=== PATIENT | female | born 1965 | race Caucasian/White ===

== ENCOUNTER 2024-01-04 09:55 | Emergency (ER) | payer OTHER, SELFPAY ==
[2024-01-04 10:02] VITALS: BP 117/62
--- NOTE | 2024-01-04 10:14 | ED.GENMED ---
History of Present Illness
General
Chief Complaint: Musculo-Skeletal Complaint
Source: patient
Time Seen by Provider: 01/04/24 10:06
History of Present Illness
History of Present Illness:
58-year-old female presenting to the emergency department for evaluation of left lower extremity pain following an accidental fall down 1 stair last night when she excellently missed the step and falling onto her left lower leg. Patient was able to
sleep without any issues but awoke this morning with more proximal fibular pain and difficulty ambulating prompting her to come to the ER for further evaluation. No other injuries were sustained. Patient notes a couple of abrasions to the left
lower leg but this was from a previous injury about a week or so ago. Denies any other previous history of injury or surgery. Denies head injury. No other concerns.
Past History
Past History
ED Past Medical History: None
ED Past Surgical History: Gynecological
Social History
Tobacco: Smoker
Alcohol: Occasional
Drug: None
Personal:
Living: with family
Review of Systems
Review of Systems
All Other Systems: ROS reviewed and negative except as documented in HPI and ROS
Phy Exam
Physical Exam
Physical Exam:
GENERAL: Alert , in no apparent distress
EYE: conjunctiva clear
Head: Normocephalic atraumatic
NECK: Supple,
ENT: mmm.
LUNGS: no acute respiratory distress
NEUROLOGICAL: Alert and oriented
SKIN: Warm and dry, skin intact.
MUSCULOSKELETAL: Left lower extremity: No obvious deformity, erythema, edema, ecchymosis. There are well-healed scabs to the left lateral ankle without any surrounding erythema or secondary signs of infection. Patient allows for full range of
motion of the foot, ankle, knee and hip. She does note some increased pain with knee flexion and extension. There is proximal fibular tenderness to palpation. No tenderness along the medial or lateral malleolus. Calcaneal tendon intact. Easily
palpable pedal and tibial pulse. Sensation grossly intact to light touch.
PSYCH: Normal and appropriate interaction.
Scores
Heart Failure Risk
Heart Failure Risk Score: Not Applicable
Heart Score for Chest Pain Patients
STEMI patient?: Not applicable
Withdrawal Assessment of Alcohol
Withdrawal Assessment Completed?: Not applicable
Course
Orders/Labs/Results
Orders:
Orders
01/04/24 10:14
CR Leg Tibia/fibula Left 2 Vw Urgent
Comment:
Reason For Exam: proximal fibula pain, fall
01/04/24 10:43
Crutches-Treatment ONCE
Knee Immobilizer Left-Treatmen ONCE
CR Knee - Left 4 Or More View* Urgent
Comment:
Reason For Exam: suspected prox fib fracture
Vital Signs
Initial and Last Documented VS:
Initial Vital Signs
Temp Pulse Resp BP Pulse Ox
98.8 F 58 16 117/62 97
01/04/24 10:02 01/04/24 10:02 01/04/24 10:02 01/04/24 10:02 01/04/24 10:02
Last Documented Vital Signs
Temp Pulse Resp BP Pulse Ox
98.8 F 58 16 117/62 97
01/04/24 10:02 01/04/24 10:02 01/04/24 10:02 01/04/24 10:02 01/04/24 10:02
MDM/Problems Addressed
Differential Diagnosis Includes:
Sprain, contusion, fracture
MDM/Problems Addressed:
58-year-old female presenting to the emergency department for evaluation of left lower leg injury following an accidental fall last night. Difficulty ambulating today. Pain on palpation of the proximal fibular region. Extremity is otherwise
neurovascularly intact. X-ray ordered. Patient took Advil prior to arrival. Disposition pending x-ray results.
*Radiology
Radiology exam reviewed: preliminary read by ED provider (Nondisplaced proximal left fibula fracture)
*Pulse Oximetry
Patient hypoxic: no
*Critical Care Note
Total Time (30-74mins, 75-104mins- exclusive of procedures): Not Applicable
Patient Management
Escalation/DeEscalation of care consider admission/obs:
Patient's x-ray confirms suspicion for proximal left fibula fracture. She was placed in a knee immobilizer. Given crutches for stability. Information for orthopedics provided. Stable for discharge home and aware of return precautions.
ED Attending Note
-
Portions of this chart may have been created with voice recognition software.� Occasional wrong word or��sound alike� substitutions may have occurred due to the inherent limitations of voice recognition software.
Discharge Plan
Departure
Patient Disposition: Home (Routine Discharge)
Date of Disposition: 01/04/24
Time of Disposition: 11:02
Patient with high blood pressure during this ER visit?: No
Discharge Problem:
Closed fracture of fibula, proximal, left, Accidental fall
Instructions: Lower leg fracture
Prescriptions:
No Action
multivitamin [Daily Multiple] 1 EACH tablet
1 ea PO DAILY
aspirin 81 MG tablet,chewable
81 mg PO DAILY
desvenlafaxine succinate [Pristiq] 50 MG tablet extended release 24 hr
50 mg PO DAILY
ondansetron 4 MG tablet,disintegrating
4 mg PO TIDPRN PRN (Reason: nausea) Qty: 7 0RF
Referrals:
Mitesh Feliciano MD [Active] -
Yadiel August MD [Family Provider] -
Interventions
Interventions:
*Risk Screen - Suicide Last Done: 01/04/24 10:02
*General Assessment Last Done: 01/04/24 10:02
*Neglect/Abuse Screening Last Done: 01/04/24 10:02
ED-Musculoskeletal Assessment Last Done: 01/04/24 10:10
ED- Neurological Assessment Last Done: 01/04/24 10:10
ED-Skin Assessment Last Done: 01/04/24 10:10
Discharge Date and Time
Print Language: MACANESE
== END 2024-01-04 11:12 | disposition home or self-care (01) ==
LOC: EMR 09:55
PROVIDERS: EMERGENCY PHYSICIAN Emergency Medicine; FAMILY PHYSICIAN Family Medicine
DX: S82.832A Other fracture of upper and lower end of left fibula, initial encounter for closed fracture (principal); W10.9XXA Fall (on) (from) unspecified stairs and steps, initial encounter; F17.200 Nicotine dependence, unspecified, uncomplicated
CPT/HCPCS: 99283; 73564; 73590

== ENCOUNTER 2024-03-08 01:17 | Inpatient (IN) | payer OTHER, SELFPAY ==
[2024-03-07 20:30] VITALS: BP 108/72
[2024-03-07] MEDS: ZOFRAN 4 MG IV (20:53)
[2024-03-07 20:57] LABS: % Basophils 0.2 % (0-2); % Immature Granulocytes 0.5 % (0-0.5); % Lymphocytes 5.7 % (20.5-51.1); % Monocytes 5.9 % (1.7-9.3); % Neutrophils 87.7 % (42.2-75.2); Absolute Immature Granulocytes 0.1 10^3/uL (0-0.05); Absolute Lymphocytes 1.3 10^3/uL (1.2-3.4); Absolute Monocytes 1.3 10^3/uL (0.1-0.6); Absolute Neutrophils 19.9 10^3/uL (1.4-6.5); Hematocrit 33.6 % (37.0-47.0); Hemoglobin 12.2 g/dL (12.0-16.0); Mean Corp Hgb Conc. 36.3 g/dL (33.0-37.0); Mean Corpuscular Hgb 31.9 pg (27.0-31.0); Mean Corpuscular Volume 87.7 fL (81.0-99.0); Mean Platelet Volume 10.4 fL (7.4-10.4); Nucleated Red Blood Cells % 0 %; Platelet Count 449 10^3/uL (130-400); Red Blood Cell Count 3.83 10^6/uL (4.20-5.40); Red Cell Dist. Width 13.2 % (11.5-14.5); White Blood Cell Count 22.7 10^3/uL (4.8-10.8)
[2024-03-07 21:20] VITALS: BMI 29.5
--- NOTE | 2024-03-07 21:21 | ED.GENMED ---
History of Present Illness
General
Chief Complaint: Abdominal Symptoms
Source: patient
Exam Limitations: none
Time Seen by Provider: 03/07/24 20:59
History of Present Illness
History of Present Illness:
This is a 58 year old female that comes in with c/o vomiting and diarrhea. States that this has happened before when she eats certain food. States that last night she eat Peanuts. then at 4:30am she awoke with vomiting and diarrhea. States that she
has abd pain, States that she has vomiting and diarrhea and becomes sweaty and then has chills. States that she also feel lightheaded. Denies any feer, chest pain, SOB, headache, urinary burning.
Past History
Past History
ED Past Medical History: HTN and Other (Inguinal hernia)
ED Past Surgical History: Gynecological (Uterine ablation) and Other (Skin graft, )
Social History
Tobacco: Smoker
Alcohol: Occasional
Drug: None
Personal:
Living: with family
Review of Systems
Review of Systems
All Other Systems: ROS reviewed and negative except as documented in HPI and ROS
Constitutional: Reports chills and other (Sweats); Denies fever
EENT: Reports no symptoms
Respiratory: Reports no symptoms; Denies cough or trouble breathing
Cardiac: Reports no symptoms; Denies chest pain
ABD/GI: Reports abdominal pain, nausea, vomiting and diarrhea
: Reports no symptoms; Denies dysuria, frequency or urgency
Musculoskeletal: Reports no symptoms
Skin: Reports no symptoms
Neurological: Reports other (Lightheaded); Denies headache
Psychiatric: Reports no symptoms
Phy Exam
General Physical Exam
General Presentation: no apparent distress
General age: appears stated age
General Skin: warm, dry and pale
General Habitus: normal
General Mental: alert
General Hydration: dry mucous membranes
ENT Exam
ENT Exam: TM's normal, pharynx normal and neck supple
Eye Exam
Eye Exam: EOMI
Cardiovascular Exam
Cardiovascular Exam: regular rate/rhythm, no edema and normal peripheral pulses
Pulmonary Exam
Pulmonary Exam: lungs clear, no respiratory distress, no rales, chest non tender, no crackles, no rhonchi, no wheezing and no cough
Gastrointestinal Exam
Gastrointestinal Exam: normal bowel sounds, non tender, soft, no organomegaly, no pulsatile mass and non distended
Musculoskeletal Exam
Musculoskeletal Exam: full ROM and no edema
Skin Exam
Skin Exam: normal color, warm/dry, no rash and no petechia
Psychiatric Exam
Psychiatric Exam: normal mood/affect
Course
Orders/Labs/Results
Orders:
Orders
03/07/24 20:50
Complete Blood Count/With Diff Urgent
Comprehensive Metabolic Panel Urgent
Lipase Urgent
03/07/24 20:52
Ondansetron Injectable [Zofran] 4 mg .ROUTE .STK-MED ONE
03/07/24 20:53
Ondansetron Injectable [Zofran] 4 mg IV NOW STA
03/07/24 20:57
EKG [Electrocardiogram (*1)] Urgent
Reason for Study: Bradycardia / Tachycardia
EKG- Treatment ONCE
03/07/24 21:19
0.9% Sodium Chloride 1000 ml [Nss] 1,000 ml IV BOLUS
CR Chest - 2 Views Urgent
Comment:
Reason For Exam: abd pain
03/07/24 21:20
CT Abd/pelvis W Iv Cont Urgent
Comment:
Reason For Exam: vomiting, diarrhea, High wBC count
Diphenhydramine [Benadryl] 25 mg IV NOW STA
Prochlorperazine [Compazine] 5 mg IV NOW STA
03/07/24 21:30
COVID-19 Antigen Urgent
Source: Nasal Swab
03/07/24 23:04
Electrocardiogram (*1) Urgent
Reason for Study: QTc Monitoring
EKG- Treatment ONCE
03/07/24 23:31
Prochlorperazine [Compazine] 5 mg IV NOW STA
03/07/24 23:42
Urinalysis Reflex To Culture Urgent
Date Specimen was Collected: 03/07/24
Time Specimen was Collected: 23:37
Urine Microscopic Reflex Cult Urgent
Abnormal Lab Results
03/07/24 03/07/24
20:50 23:42
WBC 22.7 H 10^3/uL
(4.8-10.8)
RBC 3.83 L 10^6/uL
(4.20-5.40)
Hct 33.6 L %
(37.0-47.0)
MCH 31.9 H pg
(27.0-31.0)
Plt Count 449 H 10^3/uL
(130-400)
Abs Immat Gran (auto) 0.1 H 10^3/uL
(0-0.05)
Absolute Neuts (auto) 19.9 H 10^3/uL
(1.4-6.5)
Absolute Monos (auto) 1.3 H 10^3/uL
(0.1-0.6)
Neutrophils % 87.7 H %
(42.2-75.2)
Lymphocytes % 5.7 L %
(20.5-51.1)
Carbon Dioxide 13 L* mmol/L
(22-30)
BUN 18 H mg/dl
(7-17)
Glucose 186 H mg/dl
(70-99)
Calcium 10.6 H mg/dl
(8.4-10.2)
Urine Ketones 2+ A
(Negative)
Ur Occult Blood Reflex 1+ A
(Negative)
Urine Glucose 2+ A
(Negative)
03/07/24 20:50
03/07/24 20:50
Leukocytosis, Plt slightly elevated. carbon dioxide low. Very slight Dehydration. hyperglycemia. Calcium slightly low, Urine negative for infection.
Vital Signs
Initial and Last Documented VS:
Initial Vital Signs
Temp Pulse Resp BP Pulse Ox
98.2 F 61 26 108/72 100
03/07/24 20:30 03/07/24 20:30 03/07/24 20:30 03/07/24 20:30 03/07/24 20:30
Last Documented Vital Signs
Temp Pulse Resp BP Pulse Ox
100.1 F 60 25 157/59 100
03/07/24 23:42 03/07/24 23:00 03/07/24 23:00 03/07/24 22:00 03/07/24 20:30
Tree Inspector consulted with Physician
Tree Inspector consulted with physician?: Yes
Name of Physician Consulted: Dr. Alonzo
MDM/Problems Addressed
Differential Diagnosis Includes:
Diverticulitis, Viral syndrome
MDM/Problems Addressed:
This is a 58 year old female that comes in with c/o abd pain, vomiting and diarrhea. States that this started at 4:30am last night.
Will check labs. IV fluids and CT scan. Medicate for nausea and vomiting.
Back into see patient. Patient states that she is feeling much better and she was able to sleep. Patient states that she can now give a urine. Explained to patient that she doesn't want to use Zofran to help with her nausea and vomiting as she has a
long QT. Will repeat the ECG and give patient a prescription for Reglan for the nausea and vomiting.
Back into see patient. Patient is again nauseated and vomiting. Will admit patient. Repeat ECG: rate 61, NSR, Normal axis. Normal QRS, QT normal at 450. Nonspecific ST in V3, V4, V5, V6, Checked by Dr. Rodrigez
Chronic conditions affecting care:
NA
Acute Exacerbation and/or Progression of Chronic Illness:
NA
*Radiology
Radiology exam reviewed: preliminary read by ED provider (Chest-Negative for active disease. ) and radiology read reviewed (CT-No significant acute abnormality identified in the abdomen or pelvis, as described above. )
*Pulse Oximetry
Patient hypoxic: no
*EKG
Interpreted by ED Provider?: Yes
Heart Rate: 68
Rate: normal
Rhythm: sinus and PVC's
Corona: normal axis
Interval: normal interval and long QT
QRS Pattern: normal QRS
Ischemia: non-specific ST changes
*Under Sheriff Interpretation
Rate: bradycardiac
Heart Rate: 50
Rhythm: sinus (Bradycardia with PVC's. (states that she is always that low))
*Critical Care Note
Total Time (30-74mins, 75-104mins- exclusive of procedures): Not Applicable
ED Attending Note
-
Portions of this chart may have been created with voice recognition software.� Occasional wrong word or��sound alike� substitutions may have occurred due to the inherent limitations of voice recognition software.
Discharge Plan
Departure
Prescriptions:
No Action
losartan 100 mg Tablet
100 mg PO DAILY
apple cider vinegar 500 mg Tablet
500 mg PO DAILY
varenicline [Chantix Starting Month Box] 0.5 mg (11)- 1 mg (42) Tablets,Dose Pack
0 ea PO PER PKG DIR
Patient Comments:
03/07/24: Patient states she started about a week ago
desvenlafaxine succinate [Pristiq] 100 mg Tablet Extended Release 24 Hr
100 mg PO DAILY
magnesium oxide 400 mg magnesium Tablet
400 mg PO DAILY
Referrals:
Yadiel August MD [Family Provider] -
Interventions
Interventions:
*Risk Screen - Suicide Last Done: 03/07/24 20:29
*Neglect/Abuse Screening Last Done: 03/07/24 21:15
ED- Fall Risk Assessment Last Done: 03/07/24 21:12
*ED COVID-19 Vaccine History Last Done: 03/07/24 21:14
[place]-Mqznqg-Qzzqrmwoyh Assessment Last Done: 03/07/24 21:12
Discharge Date and Time
Print Language: MARTINIQUAIS
[2024-03-07] MEDS: COMPAZINE 5 MG IV ×2 (21:25→23:39)
[2024-03-07] MEDS: BENADRYL 25 MG IV (21:25)
[2024-03-07] MEDS: NSS 1000 IV (21:26)
[2024-03-07 21:36] LABS: AST (SGOT) 28 U/L (14-36); Albumin 4.8 g/dl (3.5-5.0); Alkaline Phosphatase 104 U/L (38-126); Blood Urea Nitrogen 18 mg/dl (7-17); Calcium 10.6 mg/dl (8.4-10.2); Carbon Dioxide 13 mmol/L (22-30); Chloride 106 mmol/L (98-107); Estimated Creatinine Clearance 84 ml/min; Glucose 186 mg/dl (70-99); Lipase 60 U/L (23-300); Potassium 3.7 mmol/L (3.5-5.1); Sodium 138 mmol/L (135-145); Total Bilirubin 0.6 mg/dl (0.2-1.3); Total Protein 7.1 g/dl (6.3-8.2); eGFR > 60.00
[2024-03-07 21:46] LABS: ALT (SGPT) < 30 U/L (0-35)
[2024-03-07 21:55] LABS: COVID-19 Antigen Negative (Negative)
[2024-03-07 22:00] VITALS: BP 157/59
[2024-03-08] VITALS (7 sets, daily range): BP systolic 103–182; BP diastolic 55–68; BMI 29.1
[2024-03-08 00:03] LABS: Urine Albumin Trace (Neg - Trace); Urine Bilirubin Negative (Negative); Urine Character Clear (Clear); Urine Color Yellow; Urine Glucose 2+ (Negative); Urine Ketone 2+ (Negative); Urine Leukocyte Negative (Negative); Urine Nitrite Negative (Negative); Urine Occult Blood 1+ (Negative); Urine Urobilinogen Negative (Neg - 1+)
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
[2024-03-08 00:43] LABS: Urine Amorphous Seen; Urine Bacteria Few (Negative); Urine White Cell 0-2 /HPF (0-5)
[2024-03-08 01:08] LABS: Lactic Acid 1.6 mmol/L (0.7-2.0)
[2024-03-08 01:16] LABS: B-Hydroxybutyrate 0.19 mmol/L (0.02-0.27)
[2024-03-08] MEDS: TIGAN 200 MG IM ×2 (02:37→08:53)
[2024-03-08] MEDS: SODIUM BICARBONATE 1170 MEQ IV ×6 (03:08→22:57)
[2024-03-08 06:25] LABS: Hematocrit 32.8 % (37.0-47.0); Hemoglobin 11.6 g/dL (12.0-16.0); Mean Corp Hgb Conc. 35.4 g/dL (33.0-37.0); Mean Corpuscular Hgb 32.9 pg (27.0-31.0); Mean Corpuscular Volume 92.9 fL (81.0-99.0); Platelet Count 377 10^3/uL (130-400); Red Blood Cell Count 3.53 10^6/uL (4.20-5.40); Red Cell Dist. Width 13.6 % (11.5-14.5); White Blood Cell Count 20.1 10^3/uL (4.8-10.8)
[2024-03-08 06:47] LABS: Blood Urea Nitrogen 14 mg/dl (7-17); Carbon Dioxide 23 mmol/L (22-30); Chloride 105 mmol/L (98-107); Estimated Creatinine Clearance 83 ml/min; Glucose 120 mg/dl (70-99); Potassium 4.3 mmol/L (3.5-5.1); Sodium 141 mmol/L (135-145); eGFR > 60.00
[2024-03-08 07:17] LABS: TSH Reflex To Free T4 0.46 uIU/ml (0.47-4.68)
[2024-03-08 07:33] LABS: Erythrocyte Sed Rate 12 mm/hour (0-20)
[2024-03-08 07:46] LABS: Free T4 1.08 ng/dl (0.78-2.19)
[2024-03-08] MEDS: PRISTIQ 100 MG PO (08:46)
[2024-03-08] MEDS: COZAAR 100 MG PO (08:46)
[2024-03-08 09:19] LABS: Glycohemoglobin (HgbA1c) 5.3 % (4.0-5.6)
--- NOTE | 2024-03-08 10:21 | W.PN.HOSP.TC ---
Today's Communication/Plan
-
Continue with IV fluids
Advance diet as tolerated
Monitor on telemetry
Replete lites as needed
Assessment / Plan
Assessment / Plan
A/P: Patient is a 58y F with PMH significant for hypertension and heart murmur who presents to ED complaining of abdominal pain with N/V/D since this AM.
Intractable N/V/D
Abdominal Pain
Anion Gap Metabolic Acidosis
- Unclear etiology of symptoms ? viral gastroenteritis
- ? due to GI losses versus underlying reason for N/V/D.
- Aggressive IVF replacement and follow for improvement in labs / lytes.
- Monitor for any worsening abd pain, recurrent N/V, etc.
- Check stool studies if possible. Norovirus added
- Follow for clinical improvement. Improvement in WBC.
- CT abdomen pelvis with no significant acute abnormality in the abdomen or pelvis.
Leukocytosis
- Suspect stress reaction. Note accompanying thrombocytosis as well.
- Monitor for fever, positive culture data, etc.
- Observe off of systemic abx for now.
Long QT
Bigeminy
- Monitor on telemetry overnight.
- Repeat EKG this morning with ventricular rate of 53 with bradycardia. QT/QTc of 476/446. No significant ST or T wave changes noted. Significant improvement in QTc.
Murmur
- ? aortic stenosis. Patient states that she had regular echocardiograms for surveillance.
- Followed by [facility].
- Send for most recent records.
Benign Hypertension
- Stable. Continue losartan with holding parameters.
Anxiety / Depression
- Stable. Continue Pristiq.
Tobacco Use Disorder
- Given that Chantix is a new medications (about one week) - will hold further doses for now.
DVT Prophylaxis: SCDs
Code Status: Full
Anticipated Discharge: > 48 hours
Subjective/Interval History
-
Date of Service: March 08, 2024
States of severe nausea and vomiting
multiple loose stools yesterday
Objective Data
-
Labs:
Laboratory Results
03/08/24
06:03
WBC 20.1 H
Hgb 11.6 L
Hct 32.8 L
Plt Count 377
Sodium 141
Potassium 4.3
Chloride 105
Carbon Dioxide 23
BUN 14
Creatinine 0.7
Glucose 120 H
Calcium 10.0
Vital Signs:
Vital Signs
Temp Pulse Resp BP Pulse Ox
98.1 F 55 16 182/68 100
03/08/24 07:57 03/08/24 07:57 03/08/24 07:57 03/08/24 07:57 03/08/24 07:57
I&O
03/07/24 03/08/24 03/09/24
06:59 06:59 06:59
Output Total 200 / 200
Balance -200 / -200
Physical Exam
-
General: Well Developed and No Apparent Distress
HEENT: Normocephalic, Atraumatic and Moist Mucous Membranes
Respiratory: Clear to Auscultation
Cardiac: Regular Rhythm and S1/S2; Negative Murmur, Rub or Gallop
GI: Soft, Nontender, Nondistended and Normal Bowel Sounds; Negative Organomegaly
Rectal: Deferred by Provider
Musculoskeletal: No Clubbing, No Cyanosis and No Edema
Skin: Negative Rash
Neuro: Awake, Alert, Oriented, AO x 3 and Nonfocal/Grossly Intact
--- NOTE | 2024-03-08 11:00 | CM ---
Reviewed the chart notes and spoke with the patient at the bedside. CM consult for advance directives received. Copy of advance directive packet provided to the patient. The patient resides with her spouse and son in a split level home with a
total of seven steps to enter. The patient reports no DME/VN/SNF. The patient confirmed her pharmacy of choice is the [facility] [address] [facility]. CM continues to be available to patient/family and is monitoring medical plan for needs at
discharge.
Plan: Discharge to home when medically stable. No needs anticipated.
[2024-03-08] MEDS: COMPAZINE 10 MG IV (12:44)
--- NOTE | 2024-03-08 13:00 | PTCARENOTE ---
Patient having nausea and dry heaving. Patient unable to keep fluids down. IVF running, PRN IM Tigan not due until 1400. made aware. 1 time order of Compazine ordered and administered.
[2024-03-09] VITALS (7 sets, daily range): BP systolic 96–199; BP diastolic 51–88
[2024-03-09] MEDS: TIGAN 200 MG IM (05:34)
[2024-03-09] MEDS: COMPAZINE 10 MG IV ×2 (06:25→09:42)
[2024-03-09 07:01] LABS: Glucose - Point of Care 120 mg/dl (70-99)
--- NOTE | 2024-03-09 07:27 | W.PN.UPDATE ---
Update Note
Progress Note Update
ROLL SETTER called this AM
Chart reviewed, patient admitted with concern for viral GE
Most recently diet increased yesterday to full liquids, she reports tolerance into the night, fell asleep feeling comfortable
around 5 AM, reports significant nausea and chest discomfort, flushing. No Abdomen pain. Now vomiting (no blood)
Noted to have tachypnea but stable vitals signs
Exam: S1/S2, bradycardia, lung stout clears but tachypneic, no abdominal tenderness or distention. no reproducible chest tenderness. Flushed appearance.
EKG completed, sinus bradycardia, QTC much improved, no ischemic signs.
Plan:
Follow labs - including Trop
check CXR - patient placed on 2L for comfort but sats 98% on RA
Give Zofran 4mg x 1 dose
Will d/w primary attending.
[2024-03-09] MEDS: ZOFRAN 4 MG IV ×2 (07:34→13:40)
[2024-03-09 07:35] LABS: Hematocrit 34.3 % (37.0-47.0); Hemoglobin 11.9 g/dL (12.0-16.0); Mean Corp Hgb Conc. 34.7 g/dL (33.0-37.0); Mean Corpuscular Hgb 31.9 pg (27.0-31.0); Mean Platelet Volume 10.9 fL (7.4-10.4); Platelet Count 397 10^3/uL (130-400); Red Blood Cell Count 3.73 10^6/uL (4.20-5.40); Red Cell Dist. Width 13.5 % (11.5-14.5); White Blood Cell Count 16.4 10^3/uL (4.8-10.8)
[2024-03-09 07:45] LABS: AST (SGOT) 41 U/L (14-36); Albumin 4.5 g/dl (3.5-5.0); Alkaline Phosphatase 101 U/L (38-126); Blood Urea Nitrogen 10 mg/dl (7-17); Calcium 10.2 mg/dl (8.4-10.2); Carbon Dioxide 22 mmol/L (22-30); Chloride 100 mmol/L (98-107); Estimated Creatinine Clearance 73 ml/min; Glucose 119 mg/dl (70-99); Potassium 3.8 mmol/L (3.5-5.1); Sodium 140 mmol/L (135-145); Total Bilirubin 0.9 mg/dl (0.2-1.3); Total Protein 6.8 g/dl (6.3-8.2); eGFR > 60.00
[2024-03-09 07:57] LABS: Troponin I < 0.012 ng/ml
--- NOTE | 2024-03-09 07:57 | RR ---
A Rapid Response was called on this patient, please see Rapid Response form.
--- NOTE | 2024-03-09 07:58 | PTCARENOTE ---
Pt started c/o nausea/vomiting this morning at approx 0530, Tigan given with no + effect. SALVAGE DIVER made aware, x1 dose of compazine given at 0625. At 0650 pt complaining of feeling dizzy, manual bp 170/68, 68, T 98.8, RR 24, Pox 98% RA, BS 120 continues
to complain of nausea/vomiting. Rapid resp called on pt shortly after for c/o chest tightness and tingling sensation on her upper extremities. See RR note.
[2024-03-09 08:21] LABS: ALT (SGPT) < 10 U/L (0-35)
[2024-03-09] MEDS: COZAAR 100 MG PO (08:24)
[2024-03-09] MEDS: PRISTIQ 100 MG PO (08:24)
--- NOTE | 2024-03-09 08:36 | PTCARENOTE ---
pt with automatic bp of 199/88-- this nurse took a manual of 196/82. Md made aware. prn medications ordered and nurse to follow bp after 1hr of morning medication administration. pt aaox3 and currently sitting on O2 for tachypnea.
[2024-03-09] MEDS: MAALOX 30 ML PO (09:10)
[2024-03-09] MEDS: PROTONIX IV 40 MG IV (09:10)
[2024-03-09] MEDS: APRESOLINE 5 MG IV (09:40)
--- NOTE | 2024-03-09 09:51 | PTCARENOTE ---
pt with RR this morning. SOB -- stable pulse ox but kealed over at bedside with respirations of 25-30/min, n/v, and chest tightness. pt placed on 2L, sugar stable at 120. pt being followed and MD aware. pt given PO AM medications, pt remains
hypertensive. MD aware and prn hydralazine given after pressure was rechecked with a result of 199/86. prn given through L AC site. pt dry heaving, given prn compazine. see MAR for proper charting.
--- NOTE | 2024-03-09 10:29 | CM ---
Reviewed the chart notes. Tolerating full liquid diet. Rapid response call on patient last night. CM continues to be available to patient/family and is monitoring medical plan for needs at discharge.
Plan: Discharge to home when medically stable. No needs anticipated.
--- NOTE | 2024-03-09 10:54 | W.PN.HOSP.TC ---
Today's Communication/Plan
-
anti-nausea prn
IVF
Advanced diet as tolerated
holding chantix
Monitor BP
Assessment / Plan
Assessment / Plan
A/P: Patient is a 58y F with PMH significant for hypertension and heart murmur who presents to ED complaining of abdominal pain with N/V/D since this AM.
Intractable N/V/D
Abdominal Pain
Anion Gap Metabolic Acidosis
Marijuana abuse
- Unclear etiology of symptoms ? viral gastroenteritis vs. marijuana related vs. chantix related
- ? due to GI losses versus underlying reason for N/V/D.
- Aggressive IVF replacement and follow for improvement in labs / lytes.
- No diarrhea >24h and Dc stool studies
- Follow for clinical improvement. Improvement in WBC.
- CT abdomen pelvis with no significant acute abnormality in the abdomen or pelvis.
- Check UDS
- If no improvement will ask gi for input.
- Chantix is known to cause nausea/vomiting and GI symptoms and usually begins within first 2 weeks of treatment
Leukocytosis
- Suspect stress reaction. Note accompanying thrombocytosis as well. Plt stabilized
- Monitor for fever, positive culture data, etc.
- Observe off of systemic abx for now.
Shortness of breath
-CXR clear. no infiltrate
-O2 sats 98%. Currently on oxygen on comfort
-no severe wheezing on exam noted.
Long QT Resolved
Bigeminy
- Monitor on telemetry overnight.
- Repeat EKG this morning with ventricular rate of 53 with bradycardia. QT/QTc of 476/446. No significant ST or T wave changes noted. Significant improvement in QTc.
Murmur
- ? aortic stenosis. Patient states that she had regular echocardiograms for surveillance.
- Followed by [facility].
- Send for most recent records.
Benign Hypertension
- elevated at times
- Continue losartan with holding parameters. prn bp meds addded
- May need to additional agents if needed
Anxiety / Depression
- Stable. Continue Pristiq.
Tobacco Use Disorder
- Given that Chantix is a new medications (about one week) - will hold further doses for now.
DVT Prophylaxis: lovenox
Code Status: Full
Anticipated Discharge: > 48 hours
Subjective/Interval History
-
Date of Service: March 09, 2024
Earlier morning events noted
pt was complaining of nausea/cp and sob.
ROTARY BAR OPERATOR was called.
pt stating of dry heaves/nausea
Objective Data
-
Labs:
Laboratory Results
03/09/24 03/09/24
06:00 07:25
WBC Pending 16.4 H
Hgb Pending 11.9 L
Hct Pending 34.3 L
Plt Count Pending 397
PT 13.0
INR 1.00
APTT 24.0
Sodium Pending 140
Potassium Pending 3.8
Chloride Pending 100
Carbon Dioxide Pending 22
BUN Pending 10
Creatinine Pending 0.8
Glucose Pending 119 H
Calcium Pending 10.2
Total Bilirubin Pending 0.9
AST Pending 41 H
ALT Pending < 10
Alkaline Phosphatase Pending 101
Vital Signs:
Vital Signs
Temp Pulse Resp BP Pulse Ox
97.9 F 48 16 199/86 100
03/09/24 07:55 03/09/24 08:24 03/09/24 07:55 03/09/24 09:40 03/09/24 07:55
I&O
03/08/24 03/09/24 03/10/24
06:59 06:59 06:59
Intake Total 3240 / 3240
Output Total 200 / 200
Balance -200 / -200 3240 / 3240
Physical Exam
-
General: Well Developed and No Apparent Distress
HEENT: Normocephalic, Atraumatic, Moist Mucous Membranes and Oxygen (for comfort )
Respiratory: Clear to Auscultation
Cardiac: Regular Rhythm and S1/S2; Negative Murmur, Rub or Gallop
GI: Soft, Nondistended, Normal Bowel Sounds and Tender (epigastric ); Negative Organomegaly
Rectal: Deferred by Provider
Musculoskeletal: No Clubbing, No Cyanosis and No Edema
Skin: Negative Rash
Neuro: Awake, Alert, Oriented, AO x 3 and Nonfocal/Grossly Intact
Psych: Calm
Data Reviewed
-
Total Time Spent with Patient (in minutes): 58
[2024-03-09] MEDS: LR 1000 IV ×2 (12:42→20:09)
[2024-03-09 14:29] LABS: Amphetamines Negative (Negative); Barbiturates Negative (Negative); Benzodiazepines Negative (Negative); Buprenorphine Negative (Negative); Cocaine Negative (Negative); Marijuana Positive (Negative); Methadone Negative (Negative); Methamphetamines Negative (Negative); Opiates Negative (Negative); Phencyclidine Negative (Negative); Tricyclic Antidepressants Negative (Negative)
[2024-03-09] MEDS: TYLENOL 650 MG PO (15:34)
[2024-03-09] MEDS: LOVENOX SC (18:16)
[2024-03-10] VITALS (11 sets, daily range): BP systolic 124–229; BP diastolic 59–94
[2024-03-10] MEDS: LR 1000 IV ×2 (03:44→11:51)
[2024-03-10] MEDS: ZOFRAN 4 MG IV ×2 (07:33→13:52)
[2024-03-10] MEDS: APRESOLINE 5 MG IV ×3 (07:34→16:00)
[2024-03-10] MEDS: PROTONIX IV 40 MG IV ×2 (07:49→20:19)
[2024-03-10 07:56] LABS: % Basophils 0.3 % (0-2); % Eosinophils 1.1 % (0-6); % Immature Granulocytes 0.5 % (0-0.5); % Lymphocytes 23.6 % (20.5-51.1); % Monocytes 8.2 % (1.7-9.3); % Neutrophils 66.3 % (42.2-75.2); Absolute Eosinophils 0.1 10^3/uL (0-0.7); Absolute Immature Granulocytes 0.1 10^3/uL (0-0.05); Absolute Lymphocytes 3.1 10^3/uL (1.2-3.4); Absolute Monocytes 1.1 10^3/uL (0.1-0.6); Absolute Neutrophils 8.8 10^3/uL (1.4-6.5); Hematocrit 34.8 % (37.0-47.0); Hemoglobin 11.8 g/dL (12.0-16.0); Mean Corp Hgb Conc. 33.9 g/dL (33.0-37.0); Mean Corpuscular Hgb 32.5 pg (27.0-31.0); Mean Corpuscular Volume 95.9 fL (81.0-99.0); Mean Platelet Volume 10.8 fL (7.4-10.4); Nucleated Red Blood Cells % 0 %; Platelet Count 376 10^3/uL (130-400); Red Blood Cell Count 3.63 10^6/uL (4.20-5.40); Red Cell Dist. Width 13.5 % (11.5-14.5); White Blood Cell Count 13.3 10^3/uL (4.8-10.8)
[2024-03-10 08:09] LABS: ALT (SGPT) 23 U/L (0-35); AST (SGOT) 34 U/L (14-36); Alkaline Phosphatase 85 U/L (38-126); Blood Urea Nitrogen 8 mg/dl (7-17); Calcium 9.9 mg/dl (8.4-10.2); Carbon Dioxide 24 mmol/L (22-30); Chloride 105 mmol/L (98-107); Estimated Creatinine Clearance 73 ml/min; Glucose 91 mg/dl (70-99); Potassium 4.3 mmol/L (3.5-5.1); Sodium 138 mmol/L (135-145); Total Bilirubin 0.7 mg/dl (0.2-1.3); Total Protein 6.3 g/dl (6.3-8.2); eGFR > 60.00
[2024-03-10] MEDS: COMPAZINE 10 MG IV ×2 (09:07→16:02)
[2024-03-10] MEDS: COZAAR 100 MG PO (09:45)
[2024-03-10] MEDS: PRISTIQ 100 MG PO (09:45)
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
--- NOTE | 2024-03-10 10:42 | W.PN.HOSP.TC ---
Today's Communication/Plan
-
IVF
Anti-nausea prn
Gi input
monitor BP
Hot shower?
Assessment / Plan
Assessment / Plan
A/P: Patient is a 58y F with PMH significant for hypertension and heart murmur who presents to ED complaining of abdominal pain with N/V/D since this AM.
Intractable N/V/D
Abdominal Pain
Anion Gap Metabolic Acidosis
Marijuana abuse
- Unclear etiology of symptoms ? viral gastroenteritis vs. marijuana related vs. chantix related
- ? due to GI losses versus underlying reason for N/V/D.
- Aggressive IVF replacement and follow for improvement in labs / lytes.
- No diarrhea >24h and Dced stool studies
- Follow for clinical improvement. Improvement in WBC.
- CT abdomen pelvis with no significant acute abnormality in the abdomen or pelvis.
- Check UDS -Positive for THC
- Chantix is known to cause nausea/vomiting and GI symptoms and usually begins within first 2 weeks of treatment
- Will ask GI for input
Leukocytosis
- Suspect stress reaction. Note accompanying thrombocytosis as well. Plt stabilized
- Monitor for fever, positive culture data, etc. improving
- Observe off of systemic abx for now.
Shortness of breath
-CXR clear. no infiltrate
-O2 sats 98%. Currently on oxygen on comfort
-no severe wheezing on exam noted.
Long QT Resolved
Bigeminy
- Monitor on telemetry overnight.
- Repeat EKG this morning with ventricular rate of 53 with bradycardia. QT/QTc of 476/446. No significant ST or T wave changes noted. Significant improvement in QTc.
Murmur
- ? aortic stenosis. Patient states that she had regular echocardiograms for surveillance.
- Followed by [facility].
- Send for most recent records.
Benign Hypertension
- elevated at times
- Continue losartan with holding parameters. prn bp meds addded
- May need to additional agents if needed
Anxiety / Depression
- Stable. Continue Pristiq.
Tobacco Use Disorder
- Given that Chantix is a new medications (about one week) - will hold further doses for now.
DVT Prophylaxis: lovenox
Code Status: Full
Anticipated Discharge: > 48 hours
Subjective/Interval History
-
Date of Service: March 10, 2024
remains with severe nausea/vomiting-worse in the morning
Objective Data
-
Labs:
Laboratory Results
03/10/24
07:12
WBC 13.3 H
Hgb 11.8 L
Hct 34.8 L
Plt Count 376
Sodium 138
Potassium 4.3
Chloride 105
Carbon Dioxide 24
BUN 8
Creatinine 0.8
Glucose 91
Calcium 9.9
Total Bilirubin 0.7
AST 34
ALT 23
Alkaline Phosphatase 85
Vital Signs:
Vital Signs
Temp Pulse Resp BP Pulse Ox
98.2 F 55 14 200/90 100
03/10/24 07:00 03/10/24 07:34 03/10/24 07:00 03/10/24 07:34 03/10/24 07:00
I&O
03/09/24 03/10/24 03/11/24
06:59 06:59 06:59
Intake Total 3240 / 3240 3260 / 3260
Balance 3240 / 3240 3260 / 3260
Data Reviewed
-
Total Time Spent with Patient (in minutes): 58
[2024-03-10] MEDS: LOVENOX 40 MG SC (17:51)
[2024-03-10] MEDS: NSS (PRESERVATIVE FREE) 10 ML IV (20:19)
[2024-03-11] MEDS: LR 1000 IV (01:39)
[2024-03-11 03:16] VITALS: BP 105/46
[2024-03-11 06:13] VITALS: BP 115/62
[2024-03-11] MEDS: ZOFRAN 4 MG IV (06:34)
[2024-03-11 07:14] VITALS: BP 146/72
[2024-03-11 07:36] LABS: % Basophils 0.6 % (0-2); % Eosinophils 1.9 % (0-6); % Immature Granulocytes 0.4 % (0-0.5); % Lymphocytes 22.6 % (20.5-51.1); % Monocytes 11.4 % (1.7-9.3); % Neutrophils 63.1 % (42.2-75.2); Absolute Basophils 0.1 10^3/uL (0-0.2); Absolute Eosinophils 0.2 10^3/uL (0-0.7); Absolute Lymphocytes 2.2 10^3/uL (1.2-3.4); Absolute Monocytes 1.1 10^3/uL (0.1-0.6); Absolute Neutrophils 6.1 10^3/uL (1.4-6.5); Hematocrit 31.1 % (37.0-47.0); Mean Corp Hgb Conc. 35.4 g/dL (33.0-37.0); Mean Corpuscular Hgb 33.2 pg (27.0-31.0); Mean Platelet Volume 10.8 fL (7.4-10.4); Nucleated Red Blood Cells % 0 %; Platelet Count 339 10^3/uL (130-400); Red Blood Cell Count 3.31 10^6/uL (4.20-5.40); Red Cell Dist. Width 13.2 % (11.5-14.5); White Blood Cell Count 9.7 10^3/uL (4.8-10.8)
[2024-03-11 08:00] LABS: ALT (SGPT) 50 U/L (0-35); AST (SGOT) 47 U/L (14-36); Albumin 3.6 g/dl (3.5-5.0); Alkaline Phosphatase 79 U/L (38-126); Blood Urea Nitrogen 9 mg/dl (7-17); Calcium 9.7 mg/dl (8.4-10.2); Carbon Dioxide 22 mmol/L (22-30); Chloride 105 mmol/L (98-107); Estimated Creatinine Clearance 73 ml/min; Glucose 98 mg/dl (70-99); Potassium 3.8 mmol/L (3.5-5.1); Sodium 139 mmol/L (135-145); Total Bilirubin 0.8 mg/dl (0.2-1.3); Total Protein 5.7 g/dl (6.3-8.2); eGFR > 60.00
[2024-03-11] MEDS: PRISTIQ 100 MG PO (08:43)
[2024-03-11] MEDS: COZAAR 100 MG PO (08:44)
[2024-03-11] MEDS: NSS (PRESERVATIVE FREE) 10 ML IV (08:44)
[2024-03-11] MEDS: PROTONIX IV 40 MG IV (08:44)
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
--- NOTE | 2024-03-11 12:20 | W.DCSUMMARY ---
Discharge Summary
Discharge Data
Date of Admission: 03/08/24
Date of Discharge: 03/11/24
-
Pending Results: No
Hospital Course
58-year female past medical history of tobacco abuse, hypertension, mood disorder is presenting from home with severe abdominal pain nausea and vomiting. CT abdomen pelvis was checked admission was found to no acute pathology. Patient was started
on aggressive IV fluid resuscitation. Patient had prolonged QTc on admission. Patient QTc improved with subsequent EKGs and was monitored on telemetry. Patient was started antinausea medication. Patient with persistent nausea vomiting and just
GI was consulted. Diet was slowly advanced from clear liquid to brat diet. IV fluid was discontinued. Patient vomiting resolved. Diarrhea resolved. Patient nausea was improved and was able to tolerate diet. Patient also has severe leukocytosis
on admission which slowly improved without any antibiotics. Patient remained afebrile. Patient be discharged home with outpatient GI follow-up.
Discharge Plan
-
Patient Disposition: Home (Routine Discharge)
Discharge Diagnosis/Procedures: Abdominal pain, nausea and vomiting likely secondary to viral gastroenteritis versus cannabinoid hyperemesis syndrome
Condition: Fair
Diet: BRAT
Additional Diets: Brat diet for couple days then advance to regular
Activity: As tolerated
Driving Restrictions: As prior to admission
Blood Work: CMP in 1 week with primary doctor
Referrals:
Jeremias Cooper MD [Active] - in one month
Yadiel August MD [Family Provider] - in less than 1 week
Prescriptions:
New
omeprazole 20 mg capsule,delayed release(DR/EC)
20 mg PO BID Qty: 60 0RF
Rx Instructions:
bid x 4 week then daily
ondansetron HCl 4 mg tablet
4 mg PO BID PRN (Reason: nausea and vomiting) Qty: 10 0RF
Continued
losartan 100 mg Tablet
100 mg PO DAILY
varenicline [Chantix Starting Month Box] 0.5 mg (11)- 1 mg (42) Tablets,Dose Pack
0 ea PO PER PKG DIR
Patient Comments:
03/07/24: Patient states she started about a week ago
desvenlafaxine succinate [Pristiq] 100 mg Tablet Extended Release 24 Hr
100 mg PO DAILY
magnesium oxide 400 mg magnesium Tablet
400 mg PO DAILY
Discontinued
apple cider vinegar 500 mg Tablet
500 mg PO DAILY
Discharge Orders:
Discharge Patient (As Directed); Ordered 03/11/24
Ordered By: Yannick Angulo
Discharge Date and Time
Print Language: PRYDEINIG
--- NOTE | 2024-03-11 13:05 | CM ---
Pt for discharge today
Pt will have ride to home
Plan - home no needs
[2024-03-11] MEDS: LR IV (13:34)
[2024-03-11] MEDS: APRESOLINE 5 MG IV (13:34)
[2024-03-11 14:25] VITALS: BP 141/67
== END 2024-03-11 14:59 | disposition home or self-care (01) | DRG 392 ==
LOC: 2 NORTH 01:17
PROVIDERS: Clinical Nurse Specialist Family Health; ADMITTING PHYSICIAN Hospitalist; ATTENDING PHYSICIAN Hospitalist; CONSULT PHYSICIAN Internal Medicine Gastroenterology; EMERGENCY PHYSICIAN Emergency Medicine; FAMILY PHYSICIAN Family Medicine
DX: A08.4 Viral intestinal infection, unspecified (principal); E87.20 Acidosis, unspecified; I10 Essential (primary) hypertension; F32.A Depression, unspecified; F41.9 Anxiety disorder, unspecified; F17.210 Nicotine dependence, cigarettes, uncomplicated; D72.829 Elevated white blood cell count, unspecified; R94.31 Abnormal electrocardiogram [ECG] [EKG]; I35.0 Nonrheumatic aortic (valve) stenosis; F12.10 Cannabis abuse, uncomplicated; D75.839 Thrombocytosis, unspecified; Z88.0 Allergy status to penicillin
CPT/HCPCS: 71045; 71046; 74177; 80048; 80053; 80306; 81003; 81015; 82010; 82962; 83036; 83605; 83690; 84439; 84443; 84484; 85025; 85027; 85610; 85652; 85730; 87040; 87811; 93005; 96361; 96374; 96375; 96376; 99285; 99406; Q9967

== ENCOUNTER 2024-07-20 19:50 | Emergency (ER) | payer OTHER, SELFPAY ==
[2024-07-20 20:09] VITALS: BP 191/90
[2024-07-20 21:12] LABS: % Basophils 0.1 % (0-2); % Immature Granulocytes 0.2 % (0-0.5); % Lymphocytes 8.2 % (20.5-51.1); % Monocytes 2.8 % (1.7-9.3); % Neutrophils 88.7 % (42.2-75.2); Absolute Lymphocytes 1.1 10^3/uL (1.2-3.4); Absolute Monocytes 0.4 10^3/uL (0.1-0.6); Absolute Neutrophils 11.9 10^3/uL (1.4-6.5); Hematocrit 39.2 % (37.0-47.0); Hemoglobin 13.3 g/dL (12.0-16.0); Mean Corp Hgb Conc. 33.9 g/dL (33.0-37.0); Mean Corpuscular Volume 91.4 fL (81.0-99.0); Mean Platelet Volume 10.5 fL (7.4-10.4); Nucleated Red Blood Cells % 0 %; Platelet Count 447 10^3/uL (130-400); Red Blood Cell Count 4.29 10^6/uL (4.20-5.40); Red Cell Dist. Width 13.9 % (11.5-14.5); White Blood Cell Count 13.4 10^3/uL (4.8-10.8)
[2024-07-20] MEDS: ZOFRAN 4 MG IV (21:15)
[2024-07-20] MEDS: NSS 1000 IV ×2 (21:16→21:59)
[2024-07-20 21:19] VITALS: BP 180/69
[2024-07-20 21:32] LABS: Blood Urea Nitrogen 14 mg/dl (7-17); Carbon Dioxide 18 mmol/L (22-30); Chloride 103 mmol/L (98-107); Glucose 219 mg/dl (70-99); Lipase 68 U/L (23-300); Sodium 136 mmol/L (135-145); eGFR > 60.00
[2024-07-20 22:00] VITALS: BP 161/60
[2024-07-20 23:00] VITALS: BP 147/71
--- NOTE | 2024-07-20 23:57 | ED.GENMED ---
History of Present Illness
General
Chief Complaint: Abdominal Symptoms
Source: patient
Time Seen by Provider: 07/20/24 21:46
History of Present Illness
History of Present Illness:
59-year-old female who presents with nausea, vomiting diarrhea and inability to tolerate oral intake. Patient states she started around 2 AM this morning. No noted fevers. States her belly pain feels more like a cramping from retching. No
dysuria. No urinary frequency. No hematemesis. No melena
Past History
Past History
ED Past Medical History: HTN and Other (Inguinal hernia)
ED Past Surgical History: Gynecological (Uterine ablation) and Other (Skin graft, )
Social History
Tobacco: Smoker
Alcohol: Occasional
Drug: None
Personal:
Living: with family
Phy Exam
Physical Exam
Physical Exam:
CONSTITUTIONAL Patient alert and oriented to person, place and time. Well-appearing. Vital signs reviewed.
HEAD atraumatic, normocephalic.
EYES eyelids normal to inspection, Extraocular muscles intact, Conjunctiva normal, Sclera normal.
NECK normal range of motion, Trachea midline, no jugular venous distention.
RESPIRATORY CHEST No respiratory distress noted, Chest expansion equal, Bilateral breath sounds clear.
CARDIOVASCULAR regular rate and rhythm, Heart sounds normal.
ABDOMEN no focal tenderness, mild diffuse tenderness.
BACK normal inspection, no obvious deformities
UPPER EXTREMITY range of motion normal, Motor strength normal, no cyanosis, no edema.
LOWER EXTREMITY range of motion normal, Motor strength normal, no cyanosis, no edema.
NEURO Speech normal, No focal motor deficits, Michael coma scale 15, Memory normal, Cranial Nerves intact to screening exam.
SKIN skin warm, dry, and normal in color.
Course
Orders/Labs/Results
Orders:
Orders
07/20/24 20:12
IV Insert/Care/Rem.- Treatment PRN
07/20/24 21:04
Basic Metabolic Panel Urgent
Complete Blood Count/With Diff Urgent
Lipase Urgent
07/20/24 21:06
Ondansetron Injectable [Zofran] 4 mg .ROUTE .STK-MED ONE
07/20/24 21:15
Ondansetron Injectable [Zofran] 4 mg IV NOW STA
07/20/24 21:16
0.9% Sodium Chloride 1000 ml [Nss] 1,000 ml IV BOLUS
07/20/24 21:54
0.9% Sodium Chloride 1000 ml [Nss] 1,000 ml IV BOLUS
07/20/24 23:57
Mag Hydrox/Al Hydrox/Simeth [Maalox] 30 ml PO NOW STA
Ondansetron Orally Disint [Zofran Odt (Orally Disintegrating)] 4 mg PO NOW STA
Abnormal Lab Results
07/20/24
21:04
WBC 13.4 H 10^3/uL
(4.8-10.8)
Plt Count 447 H 10^3/uL
(130-400)
MPV 10.5 H fL
(7.4-10.4)
Absolute Neuts (auto) 11.9 H 10^3/uL
(1.4-6.5)
Absolute Lymphs (auto) 1.1 L 10^3/uL
(1.2-3.4)
Neutrophils % 88.7 H %
(42.2-75.2)
Lymphocytes % 8.2 L %
(20.5-51.1)
Carbon Dioxide 18 L mmol/L
(22-30)
Glucose 219 H mg/dl
(70-99)
07/20/24 21:04
07/20/24 21:04
Vital Signs
Initial and Last Documented VS:
Initial Vital Signs
Temp Pulse Resp BP Pulse Ox
98.2 F 67 24 191/90 99
07/20/24 20:09 07/20/24 20:09 07/20/24 20:09 07/20/24 20:09 07/20/24 20:09
Last Documented Vital Signs
Temp Pulse Resp BP Pulse Ox
98.2 F 67 24 147/71 100
07/20/24 20:09 07/20/24 20:09 07/20/24 20:09 07/20/24 23:00 07/20/24 23:30
MDM/Problems Addressed
MDM/Problems Addressed:
Gastroenteritis, dehydration
*Pulse Oximetry
Patient hypoxic: no
*Critical Care Note
Total Time (30-74mins, 75-104mins- exclusive of procedures): Not Applicable
Data Reviewed
Source: patient
Prescriptions/Medications Considered But Not Given:
Consider antibiotics with suspect viral source
Patient Management
Escalation/DeEscalation of care consider admission/obs:
Considered admission but patient feels much better after IV fluids and time. Given antiemetics as well. Feels better. Okay for discharge
ED Attending Note
-
Portions of this chart may have been created with voice recognition software.� Occasional wrong word or��sound alike� substitutions may have occurred due to the inherent limitations of voice recognition software.
Discharge Plan
Departure
Patient Disposition: Home (Routine Discharge)
Date of Disposition: 07/20/24
Time of Disposition: 23:57
Patient with high blood pressure during this ER visit?: Yes
Discharge Problem:
Vomiting, Diarrhea
Instructions: Clear Liquid Diet, Dehydration, Adult (DC), Nausea and Vomiting, Adult (DC), BLOOD PRESSURE
Prescriptions:
New
ondansetron 4 mg tablet,disintegrating
4 mg PO Q6H PRN (Reason: nausea and vomiting) Qty: 14 0RF
No Action
losartan 100 mg Tablet
100 mg PO DAILY
varenicline tartrate [Chantix Starting Month Box] 0.5 mg (11)- 1 mg (42) Tablets,Dose Pack
0 ea PO PER PKG DIR
Patient Comments:
03/07/24: Patient states she started about a week ago
desvenlafaxine succinate [Pristiq] 100 mg Tablet Extended Release 24 Hr
100 mg PO DAILY
magnesium oxide 400 mg magnesium Tablet
400 mg PO DAILY
omeprazole 20 mg capsule,delayed release(DR/EC)
20 mg PO BID Qty: 60 0RF
Rx Instructions:
bid x 4 week then daily
ondansetron HCl 4 mg tablet
4 mg PO BID PRN (Reason: nausea and vomiting) Qty: 10 0RF
Referrals:
Yadiel August MD [Family Provider] -
Activity Restrictions/Additional Instructions:
Advance diet slowly. Drink plenty of fluids. Return immediately for intractable vomiting, fevers, or any other concerns.
Interventions
Interventions:
*Risk Screen - Suicide Last Done: 07/20/24 21:12
*General Assessment Last Done: 07/20/24 21:12
*Neglect/Abuse Screening Last Done: 07/20/24 21:12
ED- Fall Risk Assessment Last Done: 07/20/24 21:12
*ED COVID-19 Vaccine History Last Done: 07/20/24 21:12
*Nursing Disposition Last Done: 07/21/24 00:03
MM-Piasld-Ercqfncgwh Assessment Last Done: 07/20/24 21:12
Discharge Date and Time
Discharge Date/Time: 07/21/24 00:03
Print Language: SUDANESE
[2024-07-20] MEDS: ZOFRAN ODT (ORALLY DISINTEGRATING) 4 MG PO (23:59)
[2024-07-20] MEDS: MAALOX 30 ML PO (23:59)
== END 2024-07-21 00:03 | disposition home or self-care (01) ==
LOC: EMR 19:50
PROVIDERS: EMERGENCY PHYSICIAN Emergency Medicine; FAMILY PHYSICIAN Family Medicine
DX: R11.2 Nausea with vomiting, unspecified (principal); R19.7 Diarrhea, unspecified; I10 Essential (primary) hypertension; F17.200 Nicotine dependence, unspecified, uncomplicated
CPT/HCPCS: 99284; 96374; 96361; 80048; 83690; 85025

== ENCOUNTER 2025-06-11 17:58 | Emergency (ER) | payer OTHER, SELFPAY ==
[2025-06-11 18:09] VITALS: BP 127/91
[2025-06-11 18:27] LABS: Hematocrit 37.5 % (37.0-47.0); Hemoglobin 13.5 g/dL (12.0-16.0); Mean Corp Hgb Conc. 36.0 g/dL (33.0-37.0); Mean Corpuscular Volume 88.0 fL (81.0-99.0); Nucleated Red Blood Cells % 0 %; Platelet Count 378 10^3/uL (130-400); Red Cell Dist. Width 12.2 % (11.5-14.5)
[2025-06-11 18:49] LABS: AST (SGOT) 26 U/L (14-36); Albumin 5.0 g/dl (3.5-5.0); Alkaline Phosphatase 106 U/L (38-126); Blood Urea Nitrogen 16 mg/dl (7-17); Calcium 10.5 mg/dl (8.4-10.2); Carbon Dioxide 14 mmol/L (22-30); Chloride 101 mmol/L (98-107); Glucose 210 mg/dl (70-99); Potassium 3.9 mmol/L (3.5-5.1); Sodium 135 mmol/L (135-145); Total Protein 7.4 g/dl (6.3-8.2); eGFR > 60.00
[2025-06-11 19:18] LABS: ALT (SGPT) 29 U/L (0-35)
== END 2025-06-11 21:04 | disposition left against medical advice (07) ==
LOC: EMR 17:58
PROVIDERS: EMERGENCY PHYSICIAN Emergency Medicine; FAMILY PHYSICIAN Family Medicine
DX: R11.2 Nausea with vomiting, unspecified (principal); Z53.21 Procedure and treatment not carried out due to patient leaving prior to being seen by health care provider
CPT/HCPCS: 80053; 85025